=== PATIENT | female | born 1985 | race Caucasian/White ===

== ENCOUNTER 2017-02-06 09:15 | Emergency (ER) | payer BC ==
[2017-02-06 09:29] VITALS: BP 134/77
[2017-02-06] MEDS ORDERED: DIPH,PERTUSS(ACELL),TET VAC/PF 0.5 ML DISP.SYRIN IM ONE (09:31)
--- NOTE | 2017-02-06 09:31 | ED Physician Documentation ---
General Adult - HISTORIAN Historian: patient - HPI Stated Complaint: bug bite right inner thigh Chief Complaint: General Adult Onset: days ago (1) Timing: still present Severity: moderate Further Comments: yes (Pt is a 31 yo female with a lesion on her R inner mid thigh that she noticed yesterday. Pt thinks it is a spider bite and found a spider in her bed, which she killed. No fever, n/v. Tetanus not utd.) - ROS CONST: no problems EYES/ENT: none CVS/RESP: none GI/: none MS/SKIN/LYMPH: other (lesion R thigh) - PAST HX Past History: none Allergies/Adverse Reactions: Allergies Allergy/AdvReac Type Severity Reaction Status Date / Time No Known Allergies Allergy Verified 02/06/17 09:30 Home Medications: Ambulatory Orders Medication Instructions Recorded NK [NK] 02/06/17 - SOCIAL HX Smoking History: non-smoker - FAMILY HX Family History: No - VITAL SIGNS Vital Signs: Vital Signs Temp Pulse Resp BP Pulse Ox 98.9 F 74 20 134/77 99 02/06/17 09:15 02/06/17 09:15 02/06/17 09:15 02/06/17 09:15 02/06/17 09:15 - REVIEWED ASSESSMENTS Nursing Assessment Reviewed: Yes Vitals Reviewed: Yes Progress - Progress Progress: Tdap 0.5 ml IM in ER Rx Doxycycline 100 mg po bid x 10 days. f/u dermatology or surgeon if condition worsens in 24-48 hrs. General Adult Physical Exam - PHYSICAL EXAM GENERAL APPEARANCE: no distress NECK: normal inspection, supple RESPIRATORY: no resp distress, chest non-tender, breath sounds normal CVS: reg rate & rhythm, heart sounds normal ABDOMEN: soft, no organomegaly, normal bowel sounds BACK: normal inspection SKIN: other (erthythematous area 10 cm on R mid inner thigh with central darkened area.) EXTREMITIES: non-tender, normal range of motion, other (erthythematous area 10 cm on R mid inner thigh with central darkened area.) NEURO: oriented X3, motor nml, sensation nml Discharge Clincal Impression: possible spider bite Referrals: Primary Doctor,No [Primary Care Provider] - 2 Days Home Medications: Ambulatory Orders NK [NK] 02/06/17 Condition: Stable Disposition: 01 HOME, SELF-CARE Decision to Admit: NO Decision Time: 10:00
== END 2017-02-06 09:45 | disposition home or self-care (01) ==
LOC: ED 09:15
DX: T63.301A Toxic effect of unspecified spider venom, accidental (unintentional), initial encounter (principal); X58.XXXA Exposure to other specified factors, initial encounter; Y93.9 Activity, unspecified; Y99.9 Unspecified external cause status
CPT/HCPCS: 90471; 90715; 99283

== ENCOUNTER 2018-07-21 08:59 | Emergency (ER) | payer SELFPAY ==
[2018-07-21 09:15] VITALS: BP 174/98
--- NOTE | 2018-07-21 09:27 | ED Physician Documentation ---
Fall - HISTORIAN Historian: patient, spouse - HPI Stated Complaint: Fall Chief Complaint: Fall Additional Information: pt slipped on ice fell hit head on truck running board w/AMS and neck pain afterward Onset: today (0700) Where: work Context: slipped, became dizzy, fell from standing r: moderate Associated Symptoms:: brief (seconds), dazed, memory impairment. denies: no loss of consciousness Location of Pain/Injury: head Injury to Right Extremity: none Injury to Left Extremity: none - ROS CONST: no problems. denies: recent illness, fever, sweating, weakness NEURO: dizziness. denies: anxiety, depression MS/SKIN/LYMPH: neck pain. denies: weakness, numbness, back pain, ankle swelling, leg swelling EYES/ENT: none. denies: problems with vision CVS/RESP: none. denies: chest pain, shortness of breath, palpitations - PAST HX Past History: other (melanoma w/mets age 12 yrs) Allergies/Adverse Reactions: Allergies Allergy/AdvReac Type Severity Reaction Status Date / Time No Known Allergies Allergy Verified 07/21/18 09:15 Home Medications: Ambulatory Orders Medication Instructions Recorded NK 02/06/17 - SOCIAL HX Smoking History: non-smoker Alcohol Use: occasionally Drug Use: none - FAMILY HX Family History: no significant history - VITAL SIGNS Vital Signs: Vital Signs Temp Pulse Resp BP Pulse Ox 94 H 15 174/98 98 07/21/18 09:05 07/21/18 09:05 07/21/18 09:05 07/21/18 09:05 - REVIEWED ASSESSMENTS Nursing Assessment Reviewed: Yes Vitals Reviewed: Yes ED Results Lab/Radiology - Orders Orders: ED Orders Category Date Time Status CT BRAIN W/O CONTRAST Stat Exams 07/21/[address] NECK SOFT TISSUE W/O CON Stat Exams 07/21/18 Ordered Fall Physical Exam - Physical Exam General Appearance: mild distress Head: trauma. No: non-tender, no swelling, no obvious injury, raccoon eyes, Cross's sign Neck: trachea midline, pain with neck movement. No: non-tender, painless ROM, decreased ROM, limited ROM Eye: KENDRA, EOMI ENT: nml external inspection Resp/CVS: chest non-tender, no ecchymosis, breath sounds nml, no resp. distress, heart sounds nml, rib tenderness Abdomen: soft, non-tender Neuro: oriented x3, sensation nml, motor nml, mood/affect nml, decorating machine tender nml. No: unsteady gait, motor deficit, slurred speech, depressed mood/affect, sensory deficit Skin: color nml, no rash. No: cyanosis, diaphoresis, pallor Back: normal inspection, no CVA tenderness, no vertebral tenderness Extremities: atraumatic - Fowler Coma Score Eyes Open: Spontaneous Speech: Oriented Motor: Obeys Commands Discharge Clincal Impression: fall w/ AMS head neck trauma Referrals: Primary Doctor,No [Primary Care Provider] - 2 Days Comments: home w/ copies cd's rad reportws---avoid lifting or straining-disc possibility of future bleed from this injury--f/u w/pcp or see neurologists Condition: Good Disposition: 01 HOME, SELF-CARE Decision to Admit: NO Decision Time: 10:44
--- NOTE | 2018-07-21 10:05 | Diagnostic Imaging Report ---
AMARIS KENNEDY [facility] [address] [facility] [address] [place], [place]. [address] Report Submission Date: Jul 21, 2018 10:00:05 AM FLEXOGRAPHIC PRINTING MACHINIST Patient Study Name: ANUSHKA BLANTON Date: Jul 21, 2018 9:38:09 AM FLEXOGRAPHIC PRINTING MACHINIST Modality Type: CT\SR Gender: F Description: CT BRAIN W/O CONTRAST : 81 Institution: [facility] Physician: AMARIS KENNEDY Examination: CT head without contrast History: FALL ON THE ICE (Hx) Comparison exam: None available Technique: Noncontrast head CT protocol. Findings: Ventricles and sulci are appropriate for patient age. Cerebrocerebellar parenchyma demonstrates normal attenuation. No evidence for parenchymal hemorrhage. No evidence for mass or mass effect. No midline shift. No extra axial fluid collections. Partial visualization of the paranasal sinuses, mastoid air cells, orbits, skull and scalp without gross irregularity. Impression: No acute parenchymal process. No hemorrhage. Electronically signed on Jul 21, 2018 10:00:05 AM FLEXOGRAPHIC PRINTING MACHINIST by: Enoch CANALES
--- NOTE | 2018-07-21 10:18 | Diagnostic Imaging Report ---
AMARIS KENNEDY [facility] [address] [facility] [address] [place], [place]. [address] Report Submission Date: Jul 21, 2018 10:05:48 AM COMPUTER TECHNOLOGIST Patient Study Name: ANUSHKA BLANTON Date: Jul 21, 2018 9:40:05 AM COMPUTER TECHNOLOGIST Modality Type: CT\SR Gender: F Description: CT C-SPINE W/O CONTRAS : 81 Institution: [facility] Physician: AMARIS KENNEDY Examination: CT cervical spine History: FALL ON THE ICE (Hx) Comparison exams: None provided Technique: CT cervical spine axial imaging with sagittal and coronal reconstruction Findings: Sagittal reconstruction demonstrates normal height of the cervical vertebral bodies. No anterior compression deformity. Reversal of the normal curvature. Coronal reconstruction does not demonstrate locked or perched facets. No atlantoaxial abnormality. Left lung apical parenchymal scarring and pleural thickening. Axial imaging obtained from the skull base through T1 Lamina and pedicles are intact. No ossific density within the central canal. No prevertebral soft tissue abnormality. Impression: No evidence for vertebral body compression fracture Electronically signed on Jul 21, 2018 10:05:48 AM COMPUTER TECHNOLOGIST by: Enoch CANALES
== END 2018-07-21 10:53 | disposition home or self-care (01) ==
LOC: ED 08:59
DX: S09.90XA Unspecified injury of head, initial encounter (principal); S19.9XXA Unspecified injury of neck, initial encounter; W01.198A Fall on same level from slipping, tripping and stumbling with subsequent striking against other object, initial encounter; W00.9XXA Unspecified fall due to ice and snow, initial encounter; Y93.9 Activity, unspecified; Y92.89 Other specified places as the place of occurrence of the external cause; Y99.0 Civilian activity done for income or pay
CPT/HCPCS: 70450; 72125; 99283; 99285